=== PATIENT | male | born 1945 | race Caucasian/White ===

== ENCOUNTER 2018-05-30 16:24 | Emergency (ER) | payer MEDICARE ==
--- NOTE | 2018-05-30 17:09 | EDM.PDOC ---
ED HPI GENERAL MEDICAL PROBLEM - General Chief Complaint: Upper Extremity Injury/Pain Stated Complaint: FELL, HURT ARM Time Seen by Provider: 05/30/18 17:00 Source of Information: Reports: Patient History Limitations: Reports: No Limitations - History of Present Illness INITIAL COMMENTS - FREE TEXT/NARRATIVE: 72-year-old male who 2 hours ago fell landing on his left upper arm and shoulder sustaining injury. He now has significant discomfort in his upper humerus and shoulder. No paresthesias to the hand, no significant elbow wrist or hand pain. He also hit his head but had no loss of consciousness, has no neurologic symptoms or headache. Onset: Sudden Duration: Hour(s): (2 hours ago) Location: Reports: Upper Extremity, Left Severity: Moderate Associated Symptoms: Reports: No Other Symptoms - Related Data Allergies Allergy/AdvReac Type Severity Reaction Status Date / Time cortisone Allergy Muscle Verified 05/30/18 16:46 Aches Home Meds: Home Meds Allopurinol [Zyloprim] 100 mg PO DAILY 05/30/18 [History] Allopurinol [Zyloprim] 100 mg PO DAILY 05/30/18 [History] Folic Acid 1 mg PO DAILY 05/30/18 [History] Gabapentin [Neurontin] 600 mg PO BID 05/30/18 [History] Hydrocodone/Acetaminophen [Vicodin 5-300 mg Tablet] 1 tab PO Q4HR PRN 05/30/18 [ History] Insulin Glarg,Human.Rec.Analog [Lantus Solostar] 15 units IN ASDIRECTED [History] Lisinopril 20 mg PO DAILY 05/30/18 [History] Metoprolol Tartrate 50 mg PO DAILY 05/30/18 [History] Simvastatin [Zocor] 40 mg PO BEDTIME 05/30/18 [History] Terazosin [Hytrin] 5 mg PO DAILY 05/30/18 [History] azaTHIOprine [Imuran] 50 mg PO DAILY 05/30/18 [History] metFORMIN HCl [Metformin HCl ER] 1,000 mg PO BID 05/30/18 [History] Past Medical History HEENT History: Reports: Impaired Vision Cardiovascular History: Reports: Bypass, High Cholesterol, Hypertension Genitourinary History: Reports: Renal Calculus Endocrine/Metabolic History: Reports: Diabetes, Type II - Past Surgical History GI Surgical History: Reports: Appendectomy Musculoskeletal Surgical History: Reports: Shoulder Surgery Social & Family History - Tobacco Use Smoking Status *Q: Never Smoker - Caffeine Use Caffeine Use: Reports: None - Recreational Drug Use Recreational Drug Use: No Review of Systems - Review of Systems Review Of Systems: See Below Respiratory: Denies: Shortness of Breath Cardiovascular: Denies: Chest Pain GI/Abdominal: Denies: Abdominal Pain Musculoskeletal: Denies: Neck Pain Neurological: Denies: Confusion, Headache Psychiatric: Reports: No Symptoms ED EXAM, GENERAL - Physical Exam Exam: See Below Exam Limited By: No Limitations General Appearance: Alert, No Apparent Distress (Patient looks uncomfortable but not distressed) Head: Atraumatic Neck: Supple Respiratory/Chest: No Respiratory Distress Extremities: Other (Left arm is now in a sling. He is exquisitely tender to palpation of the humerus proximally. Any passive range of motion causes increased pain. Sensation of the fingers are normal, grasp strength is full.) Course - Vital Signs Last Recorded V/S: Last Vital Signs Temp 97.3 F 05/30/18 16:52 Pulse 85 05/30/18 16:52 Resp 16 05/30/18 16:52 BP 123/72 05/30/18 16:52 Pulse Ox 95 05/30/18 16:52 - Orders/Labs/Meds Orders: Active Orders 24 hr Category Date Time Status Shoulder Comp Lt [CR] Stat Exams 05/30/18 17:05 Taken - Re-Assessments/Exams Free Text/Narrative Re-Assessment/Exam: 05/30/18 17:08 An x-ray of the left shoulder and left humerus were obtained. 05/30/18 18:03 X-ray of the left shoulder shows a slightly displaced spiral fracture of the surgical neck of the left humerus. His case was discussed with Dr. Edvin Calvin of orthopedics, a sling and swath was placed on the left arm. He already has hydrocodone for pain control, he will recheck with orthopedics on . Departure - Departure Time of Disposition: 18:16 Disposition: Home, Self-Care 01 Condition: Fair Clinical Impression: Fracture of humerus Qualifiers: Encounter type: initial encounter Humerus Location: surgical neck Fracture type : closed Fracture morphology: unspecified fracture morphology Fracture alignment : displaced - Discharge Information Instructions: Humerus Fracture Treated With Immobilization, [id number] Referrals: Joshua Mcneill MD [Primary Care Provider] - Forms: ED Department Discharge Care Plan Goals: Keep shoulder immobilized as much as possible, and continue your current pain medications. Recheck with Edvin Calvin in orthopedics on as discussed. Return sooner if difficulty such as shortness of breath or other concerns. - My Orders Last 24 Hours: My Active Orders 05/30/18 17:05 Shoulder Comp Lt [CR] Stat - Assessment/Plan Last 24 Hours: My Active Orders 05/30/18 17:05 Shoulder Comp Lt [CR] Stat
--- NOTE | 2018-05-31 09:18 | CR ---
Shoulder Comp Lt CLINICAL HISTORY: Pain, fall FINDINGS: There is a comminuted displaced fracture of the proximal humeral metaphysis and greater tub ercle. Bones appear osteopenic. Impression: Comminuted displaced fracture of the proximal humerus
== END 2018-05-30 18:15 | disposition home or self-care (01) ==
LOC: JP.ED 16:24
DX: S42.212A Unspecified displaced fracture of surgical neck of left humerus, initial encounter for closed fracture (principal); Z88.8 Allergy status to other drugs, medicaments and biological substances; Z79.899 Other long term (current) drug therapy; I10 Essential (primary) hypertension; E11.9 Type 2 diabetes mellitus without complications; E78.00 Pure hypercholesterolemia, unspecified; Z79.4 Long term (current) use of insulin; W01.0XXA Fall on same level from slipping, tripping and stumbling without subsequent striking against object, initial encounter
CPT/HCPCS: 73030-26-LT; 73030-LT; 99284

== ENCOUNTER 2020-01-27 07:45 | Emergency (ER) | payer MEDICARE ==
[2020-01-27] MEDS ORDERED: Aspirin 81 MG Tab.Chew PO ONE (07:55)
--- NOTE | 2020-01-27 08:25 | EDM.PDOC ---
ED HPI GENERAL MEDICAL PROBLEM - General Chief Complaint: General Stated Complaint: STROKE? Time Seen by Provider: 01/27/20 08:10 Source of Information: Reports: Patient, EMS, Old Records, RN History Limitations: Reports: No Limitations - History of Present Illness INITIAL COMMENTS - FREE TEXT/NARRATIVE: 74 yo male with NIDDM presents by EMS this morning [facility] He normally gets his care in [place]. He thinks sometime about a week ago he may have had a stroke. Describes L arm numbness. He decided to call EMS today, but there is really nothing new going on this morning. He has no fever, chest pains, SOB, or new neurological symptoms. Lives with his who does not drive. It sounds like his DM is not well controlled. Onset Date: 01/21/20 Duration: Week(s): (sx's a week ago, now resolved.) Location: Reports: Upper Extremity, Left Quality: Reports: Other (numbness, resolved) Severity: Mild Improves with: Reports: Other (time) Worsens with: Reports: Other (? diabetic poor control. ) Context: Reports: Other (see HPI) Associated Symptoms: Reports: No Other Symptoms Treatments SAWMILL OR [employer]: Reports: Other (see below) (none) - Related Data Allergies Allergy/AdvReac Type Severity Reaction Status Date / Time cortisone Allergy Muscle Verified 05/30/18 16:46 Aches Home Meds: Home Meds Gabapentin [Neurontin] 600 mg PO TID 05/30/18 [History] Metoprolol Tartrate 25 mg PO BID 05/30/18 [History] Simvastatin [Zocor] 40 mg PO BEDTIME 05/30/18 [History] allopurinoL [Zyloprim] 100 mg PO DAILY 05/30/18 [History] azaTHIOprine [Imuran] 50 mg PO BEDTIME 05/30/18 [History] metFORMIN HCl [Metformin HCl ER] 1,000 mg PO BID 05/30/18 [History] Tamsulosin HCl 0.4 mg PO DAILY 07/14/18 [History] Aspirin 81 mg PO DAILY 01/27/20 [History] Furosemide [Lasix] 40 mg PO ACBREAKFAST 01/27/20 [History] Hydrocodone/Acetaminophen [Hydrocodon-Acetaminophen 5-325] 1 tab PO ASDIRECTED PRN 01/27/20 [History] Insulin Glarg,Human.Rec.Analog [Lantus Solostar] 20 units SUBCNJ DAILY 01/27/20 [History] azaTHIOprine [Azathioprine] 50 mg PO BEDTIME 01/27/20 [History] Past Medical History HEENT History: Reports: Impaired Vision Cardiovascular History: Reports: Bypass, High Cholesterol, Hypertension Gastrointestinal History: Reports: None, Chronic Diarrhea Genitourinary History: Reports: Renal Calculus Musculoskeletal History: Reports: Other (See Below) Other Musculoskeletal History: left shoulder FX Neurological History: Reports: TIA Endocrine/Metabolic History: Reports: Diabetes, Type II, Obesity/BMI 30+ - Infectious Disease History Infectious Disease History: Reports: Chicken Pox, Measles, Mumps, Shingles - Past Surgical History Head Surgeries/Procedures: Reports: None HEENT Surgical History: Reports: None Cardiovascular Surgical History: Reports: None GI Surgical History: Reports: Appendectomy, Colonoscopy Endocrine Surgical History: Reports: None Neurological Surgical History: Reports: None Musculoskeletal Surgical History: Reports: Shoulder Surgery Dermatological Surgical History: Reports: None Social & Family History - Tobacco Use Smoking Status *Q: Never Smoker Second Hand Smoke Exposure: No - Caffeine Use Caffeine Use: Reports: None - Recreational Drug Use Recreational Drug Use: No ED ROS GENERAL - Review of Systems Review Of Systems: See Below Constitutional: Reports: No Symptoms HEENT: Reports: No Symptoms Respiratory: Reports: No Symptoms Cardiovascular: Reports: No Symptoms Endocrine: Reports: No Symptoms GI/Abdominal: Reports: No Symptoms : Reports: No Symptoms Musculoskeletal: Reports: No Symptoms Skin: Reports: No Symptoms Neurological: Reports: Numbness (L arm over the past week, not now) Psychiatric: Reports: No Symptoms ED EXAM, GENERAL - Physical Exam Exam: See Below Exam Limited By: No Limitations General Appearance: Alert, WD/WN, No Apparent Distress, Obese Eye Exam: Bilateral Eye: Normal Inspection Ears: Normal External Exam, Normal Canal, Hearing Grossly Normal, Normal TMs Ear Exam: Bilateral Ear: Auricle Normal, Canal Normal, TM normal Nose: Normal Inspection, No Blood Throat/Mouth: Normal Inspection, Normal Lips, Normal Oropharynx, Normal Voice, No Airway Compromise Head: Atraumatic, Normocephalic Neck: Normal Inspection Respiratory/Chest: No Respiratory Distress, Lungs Clear, Normal Breath Sounds, No Accessory Muscle Use Cardiovascular: Regular Rate, Rhythm, No Edema GI/Abdominal: Normal Bowel Sounds, Soft, Non-Tender, No Distention Back Exam: Normal Inspection. No: CVA Tenderness (R), CVA Tenderness (L) Extremities: Normal Inspection, Normal Range of Motion, Non-Tender, No Pedal Edema. No: Pedal Edema Neurological: Alert, Oriented, CN II-XII Intact, Normal Cognition, No Motor/ Sensory Deficits Psychiatric: Normal Affect, Normal Mood Skin Exam: Warm, Dry, Intact, Normal Color, No Rash Course - Vital Signs Last Recorded V/S: Last Vital Signs Temp 35.3 C L 01/27/20 08:07 Pulse 96 01/27/20 08:07 Resp 18 01/27/20 08:07 BP 151/76 H 01/27/20 08:07 Pulse Ox 99 01/27/20 08:07 - Orders/Labs/Meds Orders: Active Orders 24 hr Category Date Time Status Cardiac Monitoring [RC] .As Directed Care 01/27/20 07:49 Active Labs: Laboratory Tests 01/27/20 01/27/20 01/27/20 Range/Units 07:53 07:54 07:54 WBC 8.6 (4.5-11.0) K/uL RBC 3.86 L (4.30-5.90) M/uL Hgb 12.9 (12.0-15.0) g/dL Hct 40.8 (40.0-54.0) % MCV 106 H (80-98) fL MCH 33 H (27-31) pg MCHC 32 (32-36) % Plt Count 275 (150-400) K/uL Sodium 139 L (140-148) mmol/L Potassium 4.1 (3.6-5.2) mmol/L Chloride 101 (100-108) mmol/L Carbon Dioxide 27 (21-32) mmol/L Anion Gap 15.1 H (5.0-14.0) mmol/L BUN 22 H (7-18) mg/dL Creatinine 1.5 H (0.8-1.3) mg/dL Est Cr Clr Drug Dosing 41.17 mL/min Estimated GFR (MDRD) 46 L (>60) Glucose 252 H (74-106) mg/dL Calcium 9.3 (8.5-10.1) mg/dL Troponin I < 0.017 (0.000-0.056) ng/mL Urine Color Yellow (YELLOW) Urine Appearance Clear (CLEAR) Urine pH 5.5 (5.0-8.0) Ur Specific Fowler 1.015 (1.008-1.030) Urine Protein Negative (NEGATIVE) mg/dL Urine Glucose (UA) 100 H (NEGATIVE) mg/dL Urine Ketones Negative (NEGATIVE) mg/dL Urine Occult Blood Negative (NEGATIVE) Urine Nitrite Negative (NEGATIVE) Urine Bilirubin Negative (NEGATIVE) Urine Urobilinogen 0.2 (0.2-1.0) EU/dL Ur Leukocyte Esterase Negative (NEGATIVE) Urine RBC Not seen (0-5) Urine WBC Not seen (0-5) Ur Epithelial Cells Not seen Amorphous Sediment Few Urine Bacteria Not seen Urine Mucus Not seen Meds: Medications Discontinued Medications Generic Name Dose Route Start Last Admin Trade Name Freq PRN Reason Stop Dose Admin Aspirin 324 mg 01/27/20 07:55 01/27/20 08:04 Aspirin PO 01/27/20 07:56 324 mg ONETIME ONE Administration Insulin Human Regular 15 unit 01/27/20 08:32 Humulin R SUBCUT 01/27/20 08:33 ONETIME ONE Departure - Departure Time of Disposition: :20 Disposition: Home, Self-Care 01 Condition: Fair Clinical Impression: Elevated blood sugar - Discharge Information *PRESCRIPTION DRUG MONITORING PROGRAM REVIEWED*: No *COPY OF PRESCRIPTION DRUG MONITORING REPORT IN PATIENT CHANDRAKANT: No Instructions: Hyperglycemia Referrals: Ravindra Armenta MD [Primary Care Provider] - Forms: ED Department Discharge Additional Instructions: Continue your current medications. Get as much exercise as you can to help with managing your blood sugar. Talk to your provider about a referral to a nurse informatics educator. Sepsis Event Note - Evaluation Sepsis Screening Result: No Definite Risk - Focused Exam Vital Signs: Vital Signs Temp Pulse Resp BP Pulse Ox 01/27/20 08:07 35.3 C L 96 18 151/76 H 99 01/27/20 08:05 35.3 C L 96 18 151/76 H 99 Date Exam was Performed: 01/27/20 Time Exam was Performed: 08:58 - My Orders Last 24 Hours: My Active Orders 01/27/20 07:49 Cardiac Monitoring [RC] .As Directed - Assessment/Plan Last 24 Hours: My Active Orders 01/27/20 07:49 Cardiac Monitoring [RC] .As Directed
[2020-01-27] MEDS ORDERED: Insulin Regular, Human 100 Units/ML 3 ML Vial SUBCUT ONE (08:32)
== END 2020-01-27 11:31 | disposition home or self-care (01) ==
LOC: JP.ED 07:45
DX: E11.65 Type 2 diabetes mellitus with hyperglycemia (principal); E78.00 Pure hypercholesterolemia, unspecified; I10 Essential (primary) hypertension; E66.9 Obesity, unspecified; Z68.31 Body mass index [BMI] 31.0-31.9, adult; Z86.73 Personal history of transient ischemic attack (TIA), and cerebral infarction without residual deficits; Z79.82 Long term (current) use of aspirin; Z88.8 Allergy status to other drugs, medicaments and biological substances; Z79.899 Other long term (current) drug therapy; Z79.4 Long term (current) use of insulin
CPT/HCPCS: 36415; 80048; 81001; 84484; 85027; 99282; 99285; A9270; J1815-GY

== ENCOUNTER 2022-08-25 15:49 | Emergency (ER) | payer MEDICARE ==
[2022-08-25] MEDS ORDERED: Diphtheria,Pertussis(Acell),Tetanus Vaccine 0.5 ML Syringe IM ONE (16:30)
== END 2022-08-25 16:50 | disposition home or self-care (01) ==
LOC: JP.ED 15:49
DX: S80.02XA Contusion of left knee, initial encounter (principal); E11.9 Type 2 diabetes mellitus without complications; I25.10 Atherosclerotic heart disease of native coronary artery without angina pectoris; Z23 Encounter for immunization; W19.XXXA Unspecified fall, initial encounter
CPT/HCPCS: 73562-26-LT; 73562-LT; 90471; 90715; 99283-25

== ENCOUNTER 2023-07-21 14:44 | Emergency (ER) | payer MEDICARE | END 2023-07-21 17:35 | disposition home or self-care (01) | LOC: JP.ED 14:44 | DX: R07.81 Pleurodynia (principal); E78.00 Pure hypercholesterolemia, unspecified; I11.0 Hypertensive heart disease with heart failure; I50.22 Chronic systolic (congestive) heart failure; E11.9 Type 2 diabetes mellitus without complications; E66.9 Obesity, unspecified; Z68.33 Body mass index [BMI] 33.0-33.9, adult; Z79.82 Long term (current) use of aspirin; Z79.4 Long term (current) use of insulin; Z79.899 Other long term (current) drug therapy; Z88.8 Allergy status to other drugs, medicaments and biological substances | CPT/HCPCS: 99283 ==